=== PATIENT | female | born 1940 ===

== ENCOUNTER 2016-11-27 21:35 | Emergency (ER) | payer SELFPAY ==
[2016-11-27 21:35] VITALS: BMI 23.3
[2016-11-27 21:55] VITALS: RESP 16; TEMP 98
--- NOTE | 2016-11-27 23:44 | C.PDOC ---
History Of Present Illness 76 y/o female presents to emergency department with complaint of lower back pain s/p slip and fall at home [employer] today. Gurinder LOC, vomiting, new weakness, new numbness, saddle anaesthesia, abdominal pain, urinary or bowel incontinence , or other associated symptoms. Time Seen by Provider: 11/27/16 22:01 Chief Complaint (Nursing): Back Pain History Per: Patient History/Exam Limitations: no limitations Onset/Duration Of Symptoms: Days Current Symptoms Are (Timing): Still Present Quality Of Discomfort: "Pain" Previous Symptoms: None Associated Symptoms: denies: Incontinence, New Weakness, New Numbness Recent travel outside of the [place]: No Past Medical History Reviewed: Historical Data, Nursing Documentation, Vital Signs Vital Signs: Last Vital Signs Temp 98 F 11/27/16 21:50 Pulse 79 11/27/16 23:50 Resp 16 11/27/16 23:50 BP 165/85 H 11/27/16 23:50 Pulse Ox 99 11/28/16 04:09 - Medical History PMH: Osteoporosis Family History: States: Unknown Family Hx - Social History Hx Alcohol Use: No Hx Substance Use: No Review Of Systems Except As Marked, All Systems Reviewed And Found Negative. Constitutional: Negative for: Fever, Chills Cardiovascular: Negative for: Chest Pain Respiratory: Negative for: Cough, Shortness of Breath, Wheezing Gastrointestinal: Negative for: Nausea, Vomiting, Abdominal Pain Genitourinary: Negative for: Incontinence Musculoskeletal: Positive for: Back Pain. Negative for: Neck Pain Skin: Negative for: Rash Neurological: Negative for: Headache, Dizziness Physical Exam - Physical Exam Appears: Non-toxic, No Acute Distress Skin: Normal Color, Warm, Dry Head: Atraumatic, Normacephalic Neck: Normal ROM, No Midline Cervical Tenderness, No Paracervical Tenderness, Supple Chest: Symmetrical, No Tenderness Cardiovascular: Rhythm Regular, No Murmur Respiratory: Normal Breath Sounds, No Rales, No Rhonchi, No Wheezing Gastrointestinal/Abdominal: Soft, No Tenderness, No Guarding, No Rebound Back: Vertebral Tenderness (lumbar), Paraspinal Tenderness (lumbar) Extremity: Normal ROM, No Tenderness, Capillary Refill (< 2 sec.), No Deformity , Other (atraumatic, moving all extremities w/o difficulty) Extremity: Bilateral: Normal Color And Temperature Neurological/Psych: Oriented x3, Normal Speech, Normal Cognition, Normal Motor, Normal Sensation Gait: Steady ED Course And Treatment O2 Sat by Pulse Oximetry: 99 (RA) Pulse Ox Interpretation: Normal - Other Rad LS Spine XR X-Ray: Interpreted by Me, Viewed By Me Interpretation: neg fx or dislocation. +moderate stool Progress Note: Treated with Motrin. XRay ordered and reviewed; significant for moderate stool, no signs of acute bony abnormality. On reassessment, patient is resting comfortably, and is in no acute distress. Patient is ambulatory in emergency department w/o dificulty. Patient instructed to follow up with clinic/ PMD within 1-2 days. Advised to take medications as directed. Disposition Counseled Patient/Family Regarding: Diagnosis, Need For Followup, Rx Given - Disposition Referrals: [facility] [Outside] Disposition: HOME/ ROUTINE Disposition Time: 23:41 Condition: STABLE Additional Instructions: Take pain meds as prescribed Follwo up with pMD Return to ER if worse Prescriptions: Acetaminophen [Tylenol 325mg tab] 650 mg PO QID #40 tab Docusate Sodium [Colace] 100 mg PO BID #30 capsule Instructions: Acute Low Back Pain (ED) - Clinical Impression Clinical Impression: Low back pain - PA / [employer] / Resident Statement MD/DO has reviewed & agrees with the documentation as recorded. - Scribe Statement The provider has reviewed the documentation as recorded by the Juanibmakayla Davis All medical record entries made by the Alfonso were at my direction and personally dictated by me. I have reviewed the chart and agree that the record accurately reflects my personal performance of the history, physical exam, medical decision making, and the department course for this patient. I have also personally directed, reviewed, and agree with the discharge instructions and disposition.
[2016-11-27 23:50] VITALS: BP 165/85; PULSE 79
[2016-11-28 00:40] VITALS: O2SAT 99
--- NOTE | 2016-11-28 11:51 | RAD ---
PROCEDURE: Radiographs of the Lumbar Spine. HISTORY: r/o fx COMPARISON: No prior. FINDINGS: BONES: L5 is shifted anterior to S1 by less than 50 percent of the vertebral body indicating a grade 1 spondylolisthesis. Is unclear whether this is a function spondylolysis or facet arthropathy. No fracture. DISC SPACES: Mild multilevel lumbar spondylosis identified predental at the upper and mid levels and affects the inferior thoracic levels as imaged. OTHER FINDINGS: Bilateral sacroiliac degenerative joint disease. IMPRESSION: 1. Grade 1 spondylolisthesis L5-S1. Etiology indeterminate. Consider follow-up CT or MRI. 2. Mild multilevel thoracolumbar spondylosis. 3. No fracture identified. .
== END 2016-11-27 23:50 | disposition home or self-care (01) ==
LOC: C.ER 21:35
DX: M54.5 Low back pain (principal)